=== PATIENT | male | born 1945 | race Caucasian/White ===

== ENCOUNTER 2024-08-03 14:08 | Emergency (ER) | payer OTHER, SELFPAY ==
[2024-08-03 14:17] VITALS: BP 100/65; PULSE 81; RESP 20; TEMP 36.5; O2SAT 94; BMI 18.9
--- NOTE | 2024-08-03 16:13 | CRLHL7_ITS ---
For Patients: As a result of the Century Cures Act, medical imaging exams and procedure reports are released immediately into your electronic medical record. You may view this report before your referring provider. If you have questions, please contact your health care provider. Indication: Fall Technique: Noncontrast axial CT of the cervical spine with coronal and sagittal reformats. Comparison: None. Findings: Cervical dextroconvex curvature with preserved lordosis. Trace retrolisthesis at C3-4, C5-6, trace anterolisthesis at C7-T1. Craniocervical junction appears within normal limits. Vertebral body heights are grossly maintained. Multilevel spondylosis, with bony ankylosis across the right C2-3 and left C4-5 facet joints. Mild-moderate spinal canal narrowing at C3-4 and C5-6. Multilevel neural foraminal stenosis greatest on the left at C3-4, milder elsewhere. No apical pneumothorax. Impression: 1. No evidence of acute fracture or traumatic malalignment in the cervical spine. 2. Cervical spondylosis as detailed. Please note that all CT scans at this facility use dose modulation, iterative reconstruction, and/or weight-based dosing when appropriate to reduce radiation dose to as low as reasonably achievable. Dictated by Keshia Beaulieu MD @ 08/03/2024 4:54:27 PM (Electronically Signed)
--- NOTE | 2024-08-03 16:13 | CRLHL7_ITS ---
For Patients: As a result of the Century Cures Act, medical imaging exams and procedure reports are released immediately into your electronic medical record. You may view this report before your referring provider. If you have questions, please contact your health care provider. INDICATION: Fall TECHNIQUE: Noncontrast axial CT of the head. Coronal and sagittal reformats. Bone and soft tissue algorithms. COMPARISON: None. FINDINGS: The ventricles and cortical sulci are mildly prominent, compatible with generalized cerebral volume loss. No acute intracranial hemorrhage or abnormal extra-axial fluid collection identified. Tobar-white matter differentiation is grossly preserved. White matter attenuation is unremarkable for age. Midline structures appear within normal limits. Mild calcific intracranial atherosclerotic packing. No skull fracture identified. Remote endoscopic sinus surgery changes, with diffuse lobulated mucosal thickening and chronic osteitis changes. The sinonasal cavities. Clear mastoid air cells. Bilateral lens implants. IMPRESSION: 1. No skull fracture or acute intracranial hemorrhage identified. 2. Mild generalized cerebral volume loss. 3. Chronic sinus changes. Please note that all CT scans at this facility use dose modulation, iterative reconstruction, and/or weight-based dosing when appropriate to reduce radiation dose to as low as reasonably achievable. Dictated by Keshia Beaulieu MD @ 08/03/2024 4:50:38 PM (Electronically Signed)
--- NOTE | 2024-08-03 16:25 | ED_ITS ---
HPI - General Adult General Date Seen: 08/03/24 Chief complaint: Fall/Minor Trauma Stated complaint: Fall from standing-head/hand lac, no loc Time Seen by Provider: 08/03/24 16:02 Source: patient Mode of arrival: ambulatory Limitations: no limitations History of Present Illness HPI narrative: Patient is a 78-year-old male here with his after a fall at home. He says he lost his balance, he feels this may be related to an increase in his dose of gabapentin which he says sometimes is associated with dizziness. He notes that he did not lose consciousness. He hit his head on a tile floor in as a laceration over his left eyebrow. He denies headache aside from that associated with the laceration. He says his neck feels little stiff but he does not have pain. He also has an injury to his left hand with an abrasion in a couple of places. Separately, his notes concerns about his ability to manage at home, she says he has Lewy body dementia and has rapidly worsened over the past 6 months. 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 He is not anticoagulated. Related Data Allergies Allergy/AdvReac Type Severity Reaction Status Date / Time cefazolin (From [facility]) Allergy Intermediate Hives Verified 08/03/24 14:16 Review of Systems Status of ROS: Reports: 10 or more systems reviewed and unremarkable except as noted in History and below Exam Narrative: Exam Narrative: Vital signs reviewed In general, alert, nontoxic elderly male. He is pleasant and cooperative. Answers questions appropriately. Head: Normocephalic. He has a 4 cm stellate laceration over the left eyebrow. No bony deformity. Eyes: Sclera clear. Pupils equal and reactive. ENT: Mucous membranes moist. No other facial trauma. Neck: Supple without adenopathy. Heart: Regular rate and rhythm without murmur. Lungs: Clear. No increased work of breathing, crackles or wheezes. Abdomen: Soft, nontender to palpation. Extremities: Well perfused, pulses intact. No significant edema. He has a couple of abrasions on his left hand over the 5th digit, 1 over the proximal metacarpal and 1 at the MCP joint. He has a chronically flexed 5th finger. No bony tenderness. Neurologic: Alert, conversant. Oriented to person and place. Speech fluent, face symmetric. Moves all extremities equally. Skin: Warm, dry well perfused. Affect: Normal. Const: Vital Signs, click to edit/add: Vital Signs - 24 hr 08/03/24 14:17 Temperature 97.7 F Pulse Rate [Pulse Oximeter] 81 Respiratory Rate 20 Blood Pressure [Ri ght Upper Arm] 100/65 Pulse Oximetry 94 Oxygen Delivery Me thod Room Air Documenting provider has reviewed patient's vital signs: yes Course Course ED Course: Following my initial evaluation, patient went over for CT scan of the head and cervical spine. I reviewed the CT of the head, I did not see any evidence of acute hemorrhage. Both CT of the head and cervical spine read as negative for acute findings by Radiology, linked below. He had an EKG, this showed a sinus rhythm, some PVCs. Right bundle branch block. No acute ST segment changes. Procedure note: Regarding the laceration, this was anesthetized using lidocaine with epinephrine, irrigated by the tech and then explored by myself without evidence of active bleeding, foreign body or injury to deeper structures. This was closed using 5 0 nylon, simple interrupted sutures. He tolerated this well without immediate complication. The wounds on his hands were cleaned and dressed. X-ray of the left hand by my review showed no evidence of fracture dislocation. Final radiology read is pending. My experience with this patient and his in the room was somewhat unusual in the sense that he does not seem to have any identifiable memory problems here, his describes dementia severe enough that she feels he needs placement but he has no difficulty remembering names dates places from dental school and even from his 's high school days. I did discuss with the hospitalist, she did not feel that he would qualify for rehab stay, she came down and discussed with the patient's as well in terms of services they will apparently need to go through primary care. Patient will be discharged home with his , follow-up with primary care in 1 week for suture removal. Return any time for severe headache, vomiting, altered mentation, signs of infection or other worsening. Vital Signs Vital signs: Initial Vital Signs Temperature 97.7 F 08/03/24 14:17 Temperature Source Temporal Artery Scan 08/03/24 14:17 Pulse Rate 81 08/03/24 14:17 Respiratory Rate 20 08/03/24 14:17 Blood Pressure 100/65 08/03/24 14:17 Blood Pressure Mean 76 08/03/24 14:17 Blood Pressure Position Sitting 08/03/24 14:17 Pulse Oximetry 94 08/03/24 14:17 Oxygen Delivery Method Room Air 08/03/24 14:17 Vital Signs Temperature 97.7 F 08/03/24 14:17 Pulse Rate 81 08/03/24 14:17 Respiratory Rate 20 08/03/24 14:17 Blood Pressure 100/65 08/03/24 14:17 Pulse Oximetry 94 08/03/24 14:17 Oxygen Delivery Method Room Air 08/03/24 14:17 Temperature 97.7 F 08/03/24 14:17 Pulse Rate 81 08/03/24 14:17 Respiratory Rate 20 08/03/24 14:17 Blood Pressure 100/65 08/03/24 14:17 Pulse Oximetry 94 08/03/24 14:17 Oxygen Delivery Method Room Air 08/03/24 14:17 Medications Administered Medications: Discontinued Medications Generic Name Dose Route Start Last Admin Trade Name Freq PRN Reason Stop Dose Admin Sodium Chloride 500 mls @ 500 mls/hr 08/03/24 16:12 08/03/24 18:20 0.9 % Sodium Chloride 500 Ml IV 08/03/24 17:11 Infused .Q1H ONE Infusion Medical Decision Making Lab Data Labs: Lab Results 08/03/24 Range/Units 16:45 WBC 4.68 (4.50-11.00) K/uL RBC 4.41 (4.30-5.90) m/uL Hgb 12.9 L (13.5-17.5) gm/dL Hct 39.5 (37.0-53.0) % MCV 90 (80-100) fL MCH 29 (26-34) pg MCHC 33 (32-36) gm/dL RDW Coeff of Noy 13.1 (11.5-15.5) % Plt Count 198 (140-440) K/uL Neut % (Auto) 65.3 (42.0-72.0) % Lymph % (Auto) 17.7 L (20-44) % [place] % (Auto) 11.5 H (0.0-11.0) % Eos % (Auto) 4.7 (0.0-7.0) % Baso % (Auto) 0.6 (0.0-3.0) % Neut # (Auto) 3.05 (1.7-7.0) K/uL Lymph # (Auto) 0.80 L (0.90-2.90) K/uL [place] # (Auto) 0.50 (0.00-0.90) K/UL Eos # (Auto) 0.22 (0.00-0.50) K/uL Baso # (Auto) 0.03 (0.00-0.30) K/uL Abs Immat Gran (auto) 0.01 (0.00-0.30) K/uL Imm/Tot Granulo (auto) 0.2 % Sodium 139 (135-149) mmol/L Potassium 4.0 (3.6-5.1) mmol/L Chloride 103 (96-114) mmol/L Carbon Dioxide 26 (20-32) mmol/L Anion Gap 10 (7-15) mEq/L BUN 25 (7-30) mg/dL Creatinine 0.8 (0.5-1.5) mg/dL Estimated Creat Clear 49.19 Estimated GFR 90 ml/min Glucose 105 (60-115) mg/dL Lactate 1.5 (0.5-1.9) mmol/L Calcium 8.8 (8.4-10.6) mg/dL Imaging Data CT scan - head: Attestation: I have reviewed the pertinent imaging results. Radiologist's impression: Patient: CHRISTIE CAMPOS Facility: [facility] Site . Site : 1945 Study: CT-Head W/O-08/03/2024 4:35:00 PM Ordering Physician: Damien Trimble Final Report: INDICATION: Fall TECHNIQUE: Noncontrast axial CT of the head. Coronal and sagittal reformats. Bone and soft tissue algorithms. COMPARISON: None. FINDINGS: The ventricles and cortical sulci are mildly prominent, compatible with generalized cerebral volume loss. No acute intracranial hemorrhage or abnormal extra-axial fluid collection identified. Tobar-white matter differentiation is grossly preserved. White matter attenuation is unremarkable for age. Midline structures appear within normal limits. Mild calcific intracranial a therosclerotic packing. No skull fracture identified. Remote endoscopic sinus surgery changes, with diffuse lobulated mucosal thickening and chronic osteitis changes. The sinonasal cavities. Clear mastoid air cells. Bilateral lens implants. IMPRESSION: 1. No skull fracture or acute intracranial hemorrhage identified. 2. Mild generalized cerebral volume loss. 3. Chronic sinus changes. Please note that all CT scans at this facility use dose modulation, iterative reconstruction, and/or weight-based dosing when appropriate to reduce radiation dose to as low as reasonably achievable. Dictated by Keshia Beaulieu MD @ 08/03/2024 4:50:[address]- Other: Attestation: I have reviewed the pertinent imaging results. Radiologist's impression: Patient: CHRISTIE CAMPOS Facility: [facility] Site . Site : 1945 Study: CT-Spine Cervical WO-08/03/2024 4:35:57 PM Ordering Physician: Damien Trimble Final Report: Indication: Fall Technique: Noncontrast axial CT of the cervical spine with coronal and sagittal reformats. Comparison: None. Findings: Cervical dextroconvex curvature with preserved lordosis. Trace retrolisthesis at C3-4, C5-6, trace anterolisthesis at C7-T1. Craniocervical junction appears w ithin normal limits. Vertebral body heights are grossly maintained. Multilevel spondylosis, with bony ankylosis across the right C2-3 and left C4-5 facet joints. Mild-moderate spinal canal narrowing at C3-4 and C5-6. Multilevel neural foraminal stenosis greatest on the left at C3-4, milder elsewhere. No apical pneumothorax. Impression: 1. No evidence of acute fracture or traumatic malalignment in the cervical spine. 2. Cervical spondylosis as detailed. Please note that all CT scans at this facility use dose modulation, iterative reconstruction, and/or weight-based dosing when appropriate to reduce radiation dose to as low as reasonably achievable. Dictated by Keshia Beaulieu MD @ 08/03/2024 4:54:27 PM Discharge Plan Discharge Clinical Impression: Forehead laceration, Fall Patient Disposition: Home, Self-Care Condition: Improved Instructions: Fall Prevention for Older Adults (ED), Fall Prevention (ED) Additional Instructions: Sutures should be removed in about 7 days. Return any time for severe headache, vomiting, altered mentation. CT scans and x-rays do not show any broken bones or internal bleeding. Follow Up/Referrals: Roberto Mueller MD [Primary Care Provider] - Stand Alone Forms: [employer] Info Instructions
--- NOTE | 2024-08-03 16:32 | CRLHL7_ITS ---
For Patients: As a result of the Century Cures Act, medical imaging exams and procedure reports are released immediately into your electronic medical record. You may view this report before your referring provider. If you have questions, please contact your health care provider. Indication: Trauma. Technique: Left hand, 3 views. Comparison: None. Findings/Impression: Bones: 5th digit is flexed. Otherwise, alignment is normal. No displaced fractures or bone lesions. Joint spaces: Degenerative changes most pronounced about the triscaphe joint. Soft tissues: Unremarkable. Dictated by Elmer Michael MD @ 08/03/2024 7:25:05 PM (Electronically Signed)
[2024-08-03] MEDS: 0.9 % SODIUM CHLORIDE 500 ML 500 ML IV (16:37)
[2024-08-03 16:55] LABS: Lactate Sepsis w/Reflex* 1.5 mmol/L (0.5-1.9)
[2024-08-03 17:00] LABS: Basophils Absolute Auto 0.03 K/uL (0.00-0.30); Basophils Percent Auto 0.6 % (0.0-3.0); Eosinophils Absolute Auto 0.22 K/uL (0.00-0.50); Eosinophils Percent Auto 4.7 % (0.0-7.0); Hematocrit 39.5 % (37.0-53.0); Hemoglobin* 12.9 gm/dL (13.5-17.5); Immature Granulocytes Abs Auto 0.01 K/uL (0.00-0.30); Immature Granulocytes Pct Auto 0.2 %; Lymphocytes Percent Auto 17.7 % (20-44); Mean Corpuscular HGB Conc 33 gm/dL (32-36); Mean Corpuscular Hemoglobin 29 pg (26-34); Mean Corpuscular Volume 90 fL (80-100); Monocytes Percent Auto 11.5 % (0.0-11.0); Neutrophils Absolute Auto 3.05 K/uL (1.7-7.0); Neutrophils Percent Auto 65.3 % (42.0-72.0); Platelet Count* 198 K/uL (140-440); RDW Coefficient of Variation % 13.1 % (11.5-15.5); Red Blood Count 4.41 m/uL (4.30-5.90); White Blood Count* 4.68 K/uL (4.50-11.00)
[2024-08-03 17:17] LABS: Chloride* 103 mmol/L (96-114); Sodium* 139 mmol/L (135-149)
[2024-08-03 17:18] LABS: Slide Review Reflex No
[2024-08-03 17:20] LABS: Anion Gap 10 mEq/L (7-15); Blood Urea Nitrogen* 25 mg/dL (7-30); Calcium* 8.8 mg/dL (8.4-10.6); Carbon Dioxide* 26 mmol/L (20-32); Creatinine* 0.8 mg/dL (0.5-1.5); Est. Creatinine Clearance* 49.19; Estimated Glomerular Filt Rate 90 ml/min; Glucose* 105 mg/dL (60-115)
== END 2024-08-03 19:17 | disposition home or self-care (01) ==
PROVIDERS: Emergency Provider Emergency Medicine; PCP Internal Medicine
DX: S01.81XA Laceration without foreign body of other part of head, initial encounter (principal); W18.30XA Fall on same level, unspecified, initial encounter; Y92.002 Bathroom of unspecified non-institutional (private) residence as the place of occurrence of the external cause
CPT/HCPCS: 12013; 36415; 70450; 72125; 73130; 80048; 83605; 85025; 96360; 99284; J7030